=== PATIENT | female | born 2000 | race Caucasian/White ===

== ENCOUNTER 2019-04-07 14:35 | Inpatient (IN) | payer OTHER ==
[2019-04-07] MEDS ORDERED: BUTORPHANOL TARTRATE 1 MG/ML VIAL IVPUSH ONE (15:43)
[2019-04-07] MEDS ORDERED: PROMETHAZINE HCL 25 MG/1 ML VIAL IVPUSH ONE (15:43)
[2019-04-07] MEDS ORDERED: BUTORPHANOL TARTRATE 2 MG/ML VIAL IVPB ONE (15:45)
[2019-04-07] MEDS ORDERED: DEXTROSE 5%-LACTATED RINGERS 1,000 ML IV SCH (15:45)
[2019-04-07] MEDS ORDERED: PROMETHAZINE HCL 25 MG/1 ML VIAL IVPB ONE (15:45)
[2019-04-07 16:20] LABS: BASO % 0.1 % (0-2.0); EOS % 0.3 % (0-4.5); HEMATOCRIT 32.4 % (32.4-45.2); HEMOGLOBIN 10.8 GM/dL (10.7-15.3); LYMPH % 11.7 % (8-40); MCH 28.8 pg (25.7-33.7); MCHC 33.3 g/dl (32.0-36.0); MEAN CELL VOLUME 86.4 fl (80-96); MEAN PLT VOLUME 8.5 fl (7.5-11.1); MONO % 4.6 % (3.8-10.2); NEUT % 83.3 % (42.8-82.8); PLATELET COUNT 191 K/MM3 (134-434); RBC 3.75 M/mm3 (3.60-5.2); RDW 14.1 % (11.6-15.6); WHITE BLOOD COUNT 11.9 K/mm3 (4.0-10.0)
[2019-04-07 16:32] LABS: INR 0.91 (0.83-1.09); PROTHROMBIN TIME (PATIENT) 10.7 SEC (9.7-13.0)
[2019-04-07 16:35] LABS: ACTIVATED PTT 29.9 SECONDS (25.2-36.5)
[2019-04-07 16:36] VITALS: BMI 27.8
[2019-04-07 16:43] LABS: BLOOD UREA NITROGEN 5.9 mg/dL (7-18); CALCIUM 8.8 mg/dL (8.5-10.1); CREATININE 0.5 mg/dL (0.55-1.3); POTASSIUM 3.6 mmol/L (3.5-5.1)
--- NOTE | 2019-04-07 22:31 | HP ---
Past Medical History - Primary Care Physician PCP:: Sachin Neumann - Admission Chief Complaint: 40 weeks, labor History of Present Illness: 18 yo f 40 weeks ,in labor , cx 3 cm 70 vx -3 mi, fhr cat 1, contraction q 2 min, no bleeding, no fever History Source: Patient Limitations to Obtaining History: Language Barrier - Past Medical History ...: 1 ...Para: 0 ...Term: 0 ...: 0 ...Spon : 0 ...Induced : 0 ...Multiple Gestation: 0 ...LMP: 06/30/18 ... Weeks Gestation by Dates: 40.1 ...EDC by Dates: 04/06/19 ...EDC by Sono: 04/06/19 - Past Surgical History Hx Myomectomy: No Hx Transabdominal Cerclage: No - Smoking History Smoking history: Never smoked Have you smoked in the past 12 months: No - Alcohol/Substance Use Hx Alcohol Use: No - Social History Usual Living Arrangement: Yes: With Spouse History of Recent Travel: No Home Medications - Allergies Allergies/Adverse Reactions: Allergies Allergy/AdvReac Type Severity Reaction Status Date / Time No Known Drug Allergies Allergy Verified 04/07/19 15:55 - Home Medications Home Medications: Ambulatory Orders Ferrous Sulfate [Feosol] 325 mg PO DAILY 04/07/19 Vits96/Iron Fum/Folic [ Tablet] 1 each PO DAILY 04/07/19 Review of Systems - Review of Systems Constitutional: reports: No Symptoms Eyes: reports: No Symptoms HENT: reports: No Symptoms Neck: reports: No Symptoms Cardiovascular: reports: No Symptoms Respiratory: reports: No Symptoms Gastrointestinal: reports: No Symptoms Genitourinary: reports: No Symptoms Breasts: reports: No Symptoms Reported Musculoskeletal: reports: No Symptoms Integumentary: reports: No Symptoms Neurological: reports: No Symptoms Endocrine: reports: No Symptoms Hematology/Lymphatic: reports: No Symptoms Psychiatric: reports: No Symptoms Physical Exam - Maternity Vital Signs: Vital Signs Temperature 99.0 F 04/07/19 20:58 Pulse Rate 102 H 04/07/19 20:58 Respiratory Rate 18 04/07/19 20:58 Blood Pressure 118/76 04/07/19 20:58 O2 Sat by Pulse Oximetry (%) Constitutional: Yes: Well Nourished, No Distress, Calm Eyes: Yes: WNL, Conjunctiva Clear, EOM Intact HENT: Yes: WNL, Atraumatic, Normocephalic Neck: Yes: WNL, Supple, Trachea Midline Cardiovascular: Yes: WNL, Regular Rate and Rhythm Breast(s): Yes: WNL - Abdominal Exam/OB Fundal Height: 40 Number of Fetuses: Single Presentation: Vertex Contractions: Yes Regularity: Regular Intensity: Moderate Monitor Mode: External Heart Rate Location: LLQ Accelerations: Non-Uniform Decelerations: None - Vaginal Exam/OB Vaginal Bleediing: No Speculum Exam: No Dilatation (cm): 3 Effacement (%): 70 Amniotic Membrane Status: Intact Presentation: Vertex/Position Station: -3 - Physical Exam Musculoskeletal: Yes: WNL Edema: Yes Edema: RUE: Trace, LLE: Trace Integumentary: Yes: WNL Deep Tendon Reflex Grade: Hyperactive,very brisk +4 Psychiatric: Yes: WNL - Labs Lab Results: CBC, BMP 04/07/19 16:00 04/07/19 16:00 Hemorrhage Risk Assessment - Risk Factors Medium Risk Factors: Yes: None High Risk Factors: Yes: None Risk Score: 1 Risk Level: Medium Risk Problem List - Problems (1) 40 weeks gestation of Code(s): Z3A.40 - 40 WEEKS GESTATION OF (2) Labor established Code(s): HLJ6911 - Assessment/Plan FHM pain management anticipate vaginal delivery
[2019-04-08] MEDS ORDERED: AMPICILLIN - 2 GM in SODIUM CHLORIDE 100 ML IVPB ONE (01:30)
[2019-04-08] MEDS ORDERED: ACETAMINOPHEN 1000 MG/100 ML VIAL (NON FORMULARY) IVPB ONE ×2 (01:30→06:01)
[2019-04-08] MEDS ORDERED: AMPICILLIN SODIUM 2 GM VIAL ONE (01:35)
[2019-04-08] MEDS ORDERED: ACETAMINOPHEN INJECTION 100 ML IVPB ONE (01:36)
[2019-04-08] MEDS ORDERED: CITRIC ACID/SODIUM CITRATE 30 ML UNIT-DOSE CUP PO ONE (04:00)
--- NOTE | 2019-04-08 04:00 | PN ---
Progress Note (short form) - Note Progress Note: had tachycardia, temp 99.3 cx 3 cm, 70 vx -3 ,contraction regular , nitrazine positive received Ampicillin and Tylenol in view of tachy, no dilation and low grade temp advised c/s,possible chorio risks of c/s discussed Problem List - Problems (1) 40 weeks gestation of Code(s): Z3A.40 - 40 WEEKS GESTATION OF (2) Labor established Code(s): DMX9206 -
[2019-04-08] MEDS ORDERED: ELECTROLYTE-148 SOLN 1,000 ML IV SCH (04:15)
[2019-04-08] MEDS ORDERED: morphine SULFATE/PF 0.5 MG/ML (2cc Syringe - QUVA) EP ONE (04:50)
[2019-04-08] MEDS ORDERED: ceFAZolin SODIUM 1 GM VIAL ONE (04:54)
[2019-04-08] MEDS ORDERED: OXYTOCIN 10 UNITS/ML VIAL ONE (04:59)
[2019-04-08] MEDS ORDERED: KETOROLAC TROMETHAMINE 30 MG/1 ML VIAL ONE (04:59)
[2019-04-08] MEDS ORDERED: GENTAMICIN SO4 80 MG/2 ML VIAL ONE ×2 (05:11→05:13)
[2019-04-08] MEDS ORDERED: AMPICILLIN - 1 GM in SODIUM CHLORIDE 100 ML IVPB SCH (05:30)
[2019-04-08] MEDS ORDERED: IBUPROFEN 800 MG/8 ML IJ IVPB PRN (05:41)
[2019-04-08] MEDS ORDERED: METHYLERGONOVINE MALEATE 0.2 MG/1 ML AMP IM PRN (05:41)
[2019-04-08] MEDS ORDERED: BENZOCAINE 28 GM HEMORRHOIDAL OINTMENT PR PRN (05:41)
[2019-04-08] MEDS ORDERED: oxyCODONE HCL 5 MG TABLET PO PRN ×2 (05:41)
[2019-04-08] MEDS ORDERED: diphenhydrAMINE HCL 25 MG CAPSULE (FP) PO PRN (05:41)
[2019-04-08] MEDS ORDERED: BENZOCAINE 20% 57 GM BOTTLE TP PRN (05:41)
[2019-04-08] MEDS ORDERED: WITCH HAZEL 50% (TUCKS) 40 PAD/JAR PAD TP PRN (05:41)
[2019-04-08] MEDS ORDERED: OXYTOCIN 20 UNITS in 0.9% NS 1,000 ML IV SCH (05:45)
[2019-04-08] MEDS ORDERED: DEXTROSE 5%-LACTATED RINGERS 1,000 ML IV SCH (05:45)
[2019-04-08] MEDS ORDERED: OXYTOCIN 20 UNITS in 0.9% NS 20 UNIT/1,000 ML INFUS.BAG IV SCH (05:45)
--- NOTE | 2019-04-08 05:48 | OP ---
Operative Note - Note: Operative Date: 04/08/19 Pre-Operative Diagnosis: 40 weeks, tachy, low grade temp, r/o chorio Operation: primary LST c/s Findings: live baby girl 9/9 , lot, clear fliuid ,AF with odor Surgeon: Sachin Neumann Bag Worker: Juanito Loza Anesthesiologist/WAREHOUSER: Osvaldo Silver Anesthesia: Spinal Specimens Removed: placenta Estimated Blood Loss (mls): 500 Drains & Tubes with Location: [email or web address] Blood Volume Replaced (mls): 0 Operative Report Dictated: Yes
[2019-04-08] MEDS ORDERED: ONDANSETRON 4 MG/2 ML VIAL IVPUSH PRN (05:57)
[2019-04-08] MEDS ORDERED: LACTATED RINGERS SOLUTION 1,000 ML IV SCH (06:00)
[2019-04-08] MEDS ORDERED: OXYTOCIN 20 UNITS in 0.9% NS 20 UNIT/1,000 ML INFUS.BAG IV ONE (06:34)
[2019-04-08] MEDS ORDERED: ONDANSETRON 4 MG/2 ML VIAL ONE (06:39)
[2019-04-08] MEDS: ONDANSETRON 4 MG/2 ML VIAL IVPUSH PRN ×2 (06:45→12:37)
[2019-04-08] MEDS: CEFAZOLIN 1 GM/D5W 1 GM/50 ML BAG IVPB SCH ×2 (10:08→17:43)
[2019-04-08 11:13] LABS: POC NITRAZINE POS
[2019-04-09] MEDS ORDERED: BISACODYL 10 MG SUPP.RECT PR PRN (05:41)
[2019-04-09 08:23] LABS: BASO % 0.1 % (0-2.0); EOS % 0.2 % (0-4.5); HEMATOCRIT 22.1 % (32.4-45.2); HEMOGLOBIN 7.3 GM/dL (10.7-15.3); LYMPH % 15.4 % (8-40); MCH 28.7 pg (25.7-33.7); MCHC 33.1 g/dl (32.0-36.0); MEAN CELL VOLUME 86.7 fl (80-96); MEAN PLT VOLUME 8.2 fl (7.5-11.1); MONO % 5.6 % (3.8-10.2); NEUT % 78.7 % (42.8-82.8); PLATELET COUNT 153 K/MM3 (134-434); RBC 2.55 M/mm3 (3.60-5.2); RDW 14.3 % (11.6-15.6); WHITE BLOOD COUNT 11.9 K/mm3 (4.0-10.0)
[2019-04-09] MEDS: IBUPROFEN 600 MG TABLET (FP) PO PRN (13:58)
[2019-04-09] MEDS: ACETAMINOPHEN 325 MG TABLET (FP) PO PRN (13:59)
[2019-04-09] MEDS: SIMETHICONE 80 MG TAB.CHEW (FP) PO PRN (13:59)
--- NOTE | 2019-04-09 14:10 | PN ---
Progress Note (short form) - Note Progress Note: Pt Seen. Doing well. POD#1 after under spinal w/ Duramorph. No Complaints.
--- NOTE | 2019-04-09 15:03 | PATH ---
Surgical Pathology Report Patient Name: SHEREEN SOW Med. Rec. #: [id number] /Age/Gender: 2000 (Age: 18) / F Account: [id number] Location: [facility] OBS/MANAGER OF TAX Taken: 04/08/2019 Received: 04/08/2019 Reported: 04/09/2019 Physicians: Sachin Neumann M.D. Specimen(s) Received PLACENTA Clinical History , IUP 40.2 weeks, AB therapy Temperature 99.3 Primary secondary to failure to descend/dilate Final Diagnosis PLACENTA, SECTION: 534 G THIRD TRIMESTER PLACENTA WITH SEVERE ACUTE CHORIOAMNIONITIS. TRIVASCULAR UMBILICAL CORD WITH PANVASCULITIS AND ASSOCIATED FUNISITIS. Electronically Signed Shereen Cordon M.D. Gross Description The specimen is received fresh labeled placenta and is a 534 gram, 17.5 x 14.0 x 3.5 cm. placenta with attached membranes and umbilical cord. The attached membranes are ashley, translucent with focal opacities and insert marginally. The umbilical cord measures 13.5 cm. in length and averages 1.3 cm. in diameter. The cord inserts centrally. No true knots or strictures are identified. Cut surface of the umbilical cord reveals 3 vessels. The surface is ralph-blue with minimal fibrin deposition and appropriate caliber vessels. The maternal surface is red-brown and intact. Sectioning reveals red-brown, spongy parenchyma. No lesions are identified. Animal Nutrition Teacher sections are submitted in three cassettes as follows: 1- membrane rolls and umbilical cord; 2-3- full thickness sections of placenta. /04/08/2019 [facility]04/08/2019
--- NOTE | 2019-04-09 17:52 | PN ---
Post Progress Note - Subjective Subjective: Doing well. Pain controlled. No fevers/chills. Minimal ambulation. Type of Delivery: Primary C/S Vital Signs: Vital Signs Temperature 98.1 F 04/09/19 10:00 Pulse Rate 99 H 04/09/19 10:00 Respiratory Rate 18 04/09/19 10:00 Blood Pressure 107/65 04/09/19 10:00 O2 Sat by Pulse Oximetry (%) 99 04/08/19 06:45 Uterus: Yes: Fundus below umbilicus Incision: Yes: Dressing dry and intact Abdomen/GI: Yes: Abdomen soft Lochia: Yes: Rubra Lochia, amount: Small Extremities: Yes: Calves non-tender Perineum: Yes: Intact Activity: Ambulating - Labs Labs: CBC WBC 11.9 K/mm3 (4.0-10.0) H 04/09/19 07:47 RBC 2.55 M/mm3 (3.60-5.2) L 04/09/19 07:47 Hgb 7.3 GM/dL (10.7-15.3) L 04/09/19 07:47 Hct 22.1 % (32.4-45.2) L D 04/09/19 07:47 MCV 86.7 fl (80-96) 04/09/19 07:47 MCH 28.7 pg (25.7-33.7) 04/09/19 07:47 MCHC 33.1 g/dl (32.0-36.0) 04/09/19 07:47 RDW 14.3 % (11.6-15.6) 04/09/19 07:47 Plt Count 153 K/MM3 (134-434) 04/09/19 07:47 MPV 8.2 fl (7.5-11.1) 04/09/19 07:47 Absolute Neuts (auto) 9.4 K/mm3 (1.5-8.0) H 04/09/19 07:47 Neutrophils % 78.7 % (42.8-82.8) 04/09/19 07:47 Lymphocytes % 15.4 % (8-40) D 04/09/19 07:47 Monocytes % 5.6 % (3.8-10.2) 04/09/19 07:47 Eosinophils % 0.2 % (0-4.5) 04/09/19 07:47 Basophils % 0.1 % (0-2.0) 04/09/19 07:47 Nucleated RBC % 0 % (0-0) 04/09/19 07:47 Assessment/Plan 18yo s/p PTLCS c/b chorio, anemia Routine PP care s/p Amp/Gent, now off, cont to monitor; afebrile CBC with H/H 12/10, no symptoms. Iron supplementation. Repeat CBC in AM PO pain control Anticipate d/c to home by POD#4 Dave Perry MD
[2019-04-09] MEDS: FERROUS SO4 325 MG TABLET (FP) PO SCH (22:10)
--- NOTE | 2019-04-10 00:19 | OP ---
DATE OF OPERATION: 04/08/2019 PREOPERATIVE DIAGNOSIS: 40 weeks, labor, chorioamnionitis. POSTOPERATIVE DIAGNOSIS: 40 weeks, labor, chorioamnionitis. PROCEDURE: Primary low segment transverse resection. SURGEON: Palmira Neumann MD ANESTHESIA: Spinal anesthesia. ANESTHESIOLOGIST: Salomón Silver MD ESTIMATED BLOOD LOSS: 700 mL. OPERATION: Patient was taken to operating room with adequate spinal anesthesia. Abdomen and perineum were prepped and draped. Pfannenstiel abdominal skin incision was made. Abdominal wall was cut layer by layer until the peritoneum was exposed and incised. Upon entering the abdominal cavity, the lower uterine segment was identified, and uterovesical fold of the peritoneum was established. The bladder was pushed down. A low transverse incision was made, the incision extended laterally. Amniotic sac was entered. Amniotic sac was foul smelling. A culture was taken. Head delivered. Nasopharynx was suctioned. A live baby was delivered without any difficulty. Apgars 9 and 9. Placenta was delivered manually. Uterine cavity was cleared of all remaining tissue. Uterine incision was closed in 2 layers, the 1st layer with 0 Biosyn continuous suture, and the 2nd layer with 0 Biosyn imbricating the 1st layer. Bladder flap was closed with 0 Biosyn continuous suture. Both tubes and ovaries were checked and were normal. No active bleeding was seen. All the lap, sponge, and instrument counts were correct. Peritoneum was closed with 0 Biosyn continuous suture. Muscles were brought together interrupted suture with 0 Biosyn. Fascia was closed with 0 Biosyn continuous sutures, subcutaneous fat with interrupted sutures 0 Biosyn, and the skin was closed with 3-0 Vicryl subcuticular continuous suture. The patient tolerated the procedure well and left the OR in good condition. PALMIRA NEUMANN M.D. [id number]
[2019-04-10] MEDS: SIMETHICONE 80 MG TAB.CHEW (FP) PO PRN ×2 (00:59→13:30)
[2019-04-10] MEDS: ACETAMINOPHEN 325 MG TABLET (FP) PO PRN ×2 (00:59→13:30)
[2019-04-10] MEDS: IBUPROFEN 600 MG TABLET (FP) PO PRN ×2 (00:59→13:29)
--- NOTE | 2019-04-10 06:46 | PN ---
Post Progress Note - Subjective Subjective: no c/o dizziness passing flatus , sometimes gaseous discomfort voiding without difficulty paon scale /10 Post Day: 2 Type of Delivery: Primary C/S Vital Signs: Vital Signs Temperature 97.8 F 04/09/19 22:00 Pulse Rate 98 H 04/09/19 22:00 Respiratory Rate 18 04/09/19 22:00 Blood Pressure 105/60 04/09/19 22:00 O2 Sat by Pulse Oximetry (%) 99 04/08/19 06:45 Breast Exam: Yes: Soft, Other (BF & bottle feeding ). No: Engorged Uterus: Yes: Fundus Firm, Fundus below umbilicus, Non-tender Incision: Yes: Sutures intact. No: Redness, Oozing Abdomen/GI: Yes: Abdomen soft, Passing flatus, Tolerating PO (diet ). No: Abdominal Distention, Tender Lochia: Yes: Rubra Lochia, amount: Small Extremities: Yes: Calves non-tender. No: Edema Perineum: Yes: Intact Activity: Ambulating - Labs Labs: CBC WBC 11.9 K/mm3 (4.0-10.0) H 04/09/19 07:47 RBC 2.55 M/mm3 (3.60-5.2) L 04/09/19 07:47 Hgb 7.3 GM/dL (10.7-15.3) L 04/09/19 07:47 Hct 22.1 % (32.4-45.2) L D 04/09/19 07:47 MCV 86.7 fl (80-96) 04/09/19 07:47 MCH 28.7 pg (25.7-33.7) 04/09/19 07:47 MCHC 33.1 g/dl (32.0-36.0) 04/09/19 07:47 RDW 14.3 % (11.6-15.6) 04/09/19 07:47 Plt Count 153 K/MM3 (134-434) 04/09/19 07:47 MPV 8.2 fl (7.5-11.1) 04/09/19 07:47 Absolute Neuts (auto) 9.4 K/mm3 (1.5-8.0) H 04/09/19 07:47 Neutrophils % 78.7 % (42.8-82.8) 04/09/19 07:47 Lymphocytes % 15.4 % (8-40) D 04/09/19 07:47 Monocytes % 5.6 % (3.8-10.2) 04/09/19 07:47 Eosinophils % 0.2 % (0-4.5) 04/09/19 07:47 Basophils % 0.1 % (0-2.0) 04/09/19 07:47 Nucleated RBC % 0 % (0-0) 04/09/19 07:47 Problem List - Problems (1) examination following delivery Code(s): Z39.2 - ENCOUNTER FOR ROUTINE FOLLOW-UP (2) Anemia Code(s): D64.9 - ANEMIA, UNSPECIFIED Qualifiers: Anemia type: iron deficiency Iron deficiency anemia type: inadequate dietary iron intake Qualified Code(s): D50.8 - Other iron deficiency anemias Assessment/Plan s/p primary c/section,afebrile , severe anemia , hemodynamically stable pt is made aware of anemia & symptoms . discuss expectant management versus pack cell transfusion,r/b/a informed . she declined transfusion ct po iron & pnv . encourage ambulation with someone by her side , po fluids , deep breathing
[2019-04-10] MEDS ORDERED: FLU VACCINE QUAD 60 MCG/0.5 ML (MDV 19-20) IM ONE (08:52)
[2019-04-10] MEDS: FERROUS SO4 325 MG TABLET (FP) PO SCH ×2 (09:15→23:20)
[2019-04-10] MEDS ORDERED: DIPHTH,PERTUSS(ACELL),TET 0.5 ML DISP.SYRIN IM ONE (10:00)
[2019-04-10] MEDS ORDERED: FLU VACC QS2019-20(6MOS UP)/PF 60 MCG/0.5 ML SYRINGE IM ONE (10:00)
[2019-04-10] MEDS: PRENATAL VITAMINS W/ FOLIC ACID TABLET (FP) PO SCH (11:00)
[2019-04-10] MEDS ORDERED: SENNOSIDES/DOCUSATE COMBO (SENNA PLUS) TABLET (UD) PO PRN (22:00)
[2019-04-11] MEDS: IBUPROFEN 600 MG TABLET (FP) PO PRN (00:10)
[2019-04-11] MEDS: SIMETHICONE 80 MG TAB.CHEW (FP) PO PRN (00:10)
[2019-04-11] MEDS: ACETAMINOPHEN 325 MG TABLET (FP) PO PRN (00:11)
--- NOTE | 2019-04-11 08:50 | DS ---
Physical Examination Vital Signs: Vital Signs Temperature 97.8 F 04/10/19 22:00 Pulse Rate 91 H 04/10/19 22:00 Respiratory Rate 18 04/10/19 22:00 Blood Pressure 113/66 04/10/19 22:00 O2 Sat by Pulse Oximetry (%) 98 04/10/19 21:00 Findings/Remarks: Ambulating, tolerating PO, lochia decreased, patient denies lightheadedness and weakness, previuosly counseld on anemia and declined blood transfusion. Constitutional: Yes: Well Nourished Eyes: Yes: WNL HENT: Yes: Atraumatic Neck: Yes: Supple Cardiovascular: Yes: Regular Rate and Rhythm Respiratory: Yes: Regular Gastrointestinal: Yes: Normal Bowel Sounds ...Rectal Exam: Yes: Other (deferred) Renal/: Yes: WNL Breast(s): Yes: Other (deferred) Musculoskeletal: Yes: WNL Extremities: Yes: WNL Edema: Yes Edema: LLE: Trace, RLE: Trace Integumentary: Yes: WNL Wound/Incision: Yes: Clean/Dry, Well Approximated Neurological: Yes: Alert, Oriented ...Motor Strength: WNL Psychiatric: Yes: Alert, Oriented Labs: CBC, BMP 04/09/19 07:47 04/07/19 16:00 Discharge Summary Problems reviewed: Yes Reason For Visit: LABOR Current Active Problems 40 weeks gestation of (Acute) Anemia (Acute) Labor established (Acute) examination following delivery (Acute) Procedures: Principal: CD Hospital Course: Patient underwent CD due to chorioamnionitis. recovery complicated by anemia. Patient is asymptomatic and declined blood transfusion. Risks and complications of anemia explained. Patient instructed to follow up within a week at [facility] for incision check Health Concerns: Anemia Plan of Treatment: PP/post-op precautions discussed with patient. Follow up instructions explained. Condition: Stable - Instructions Referrals: Dolores Gutiérrez CNM [Certified Nurse Cnc Mill Programmer] - Disposition: HOME - Home Medications Comprehensive Discharge Medication List: Ambulatory Orders Ferrous Sulfate [Feosol] 325 mg PO DAILY 04/07/19 Vits96/Iron Fum/Folic [ Tablet] 1 each PO DAILY 04/07/19 Acetaminophen [Tylenol] 325 mg PO Q4H PRN #20 capsule 04/11/19 Ferrous Sulfate [Feosol] 325 mg PO BID #30 tablet 04/11/19 Ibuprofen 600 mg PO Q6H PRN #30 tablet 04/11/19 Oxycodone HCl 5 mg PO Q6H PRN #10 tablet MDD 5 04/11/19
[2019-04-11 09:07] VITALS: BP 110/68; PULSE 88; TEMP 98
[2019-04-11] MEDS: FERROUS SO4 325 MG TABLET (FP) PO SCH (09:17)
[2019-04-11] MEDS: PRENATAL VITAMINS W/ FOLIC ACID TABLET (FP) PO SCH (09:17)
[2019-04-11 10:51] LABS: BASO % 0.2 % (0-2.0); EOS % 0.7 % (0-4.5); HEMATOCRIT 24.7 % (32.4-45.2); HEMOGLOBIN 8.3 GM/dL (10.7-15.3); LYMPH % 13.7 % (8-40); MCHC 33.4 g/dl (32.0-36.0); MEAN CELL VOLUME 86.6 fl (80-96); MONO % 4.9 % (3.8-10.2); NEUT % 80.5 % (42.8-82.8); PLATELET COUNT 248 K/MM3 (134-434); RBC 2.86 M/mm3 (3.60-5.2); RDW 13.9 % (11.6-15.6); WHITE BLOOD COUNT 9.7 K/mm3 (4.0-10.0)
== END 2019-04-11 13:45 | disposition home or self-care (01) | DRG 540 ==
LOC: JDEL 14:35 → JLDR 15:20 → J3W 04-08 08:00
PROVIDERS: ADMIT Obstetrics & Gynecology; ATTEND Obstetrics & Gynecology
PROC: 10D00Z1 Extraction of Products of Conception, Low, Open Approach (ICD-10-PCS; principal; 2019-04-08)
DX: O48.0 Post-term pregnancy (principal); Z3A.40 40 weeks gestation of pregnancy; O41.1230 Chorioamnionitis, third trimester, not applicable or unspecified; O76 Abnormality in fetal heart rate and rhythm complicating labor and delivery; O99.02 Anemia complicating childbirth; D64.9 Anemia, unspecified; Z37.0 Single live birth
CPT/HCPCS: 36415; 36600; 80048; 82803; 83986-QW; 85025; 85610; 85730; 86593; 86850; 86900; 86901; 87070; 87205; 88307-TC; 90686; 90715; J0131

== ENCOUNTER 2021-04-25 01:05 | Emergency (ER) | payer OTHER ==
[2021-04-25] MEDS ORDERED: DIPHTH,PERTUSS(ACELL),TET 0.5 ML DISP.SYRIN IM ONE ×2 (02:47→03:12)
[2021-04-25 03:34] VITALS: BP 116/79; PULSE 79; TEMP 97.2; BMI 25.4
== END 2021-04-25 05:46 | disposition home or self-care (01) ==
LOC: JER 01:05
PROC: 3E0234Z Introduction of Serum, Toxoid and Vaccine into Muscle, Percutaneous Approach (ICD-10-PCS; principal; 2021-04-25)
DX: S61.206A Unspecified open wound of right little finger without damage to nail, initial encounter (principal); W26.0XXA Contact with knife, initial encounter
CPT/HCPCS: 73130-TC-RT-FY; 90471; 90715; 99283-25

== ENCOUNTER 2021-04-27 13:21 | Emergency (ER) | payer SELFPAY ==
[2021-04-27 13:27] VITALS: BP 121/71; PULSE 66; TEMP 98.1; BMI 25.0
== END 2021-04-27 15:13 | disposition home or self-care (01) ==
LOC: JERFT 13:21
DX: S60.051A Contusion of right little finger without damage to nail, initial encounter (principal)
CPT/HCPCS: 99281-25

== ENCOUNTER 2021-05-04 00:40 | Emergency (ER) | payer SELFPAY ==
[2021-05-04 01:31] VITALS: BP 114/75; PULSE 61; TEMP 98; BMI 25.0
== END 2021-05-04 02:44 | disposition home or self-care (01) ==
LOC: JER 00:40
DX: S61.216A Laceration without foreign body of right little finger without damage to nail, initial encounter (principal); W26.0XXA Contact with knife, initial encounter; Z48.00 Encounter for change or removal of nonsurgical wound dressing
CPT/HCPCS: 99281-25

== ENCOUNTER 2023-01-17 03:47 | Emergency (ER) | payer OTHER ==
[2023-01-17 03:56] VITALS: BMI 26.4
[2023-01-17] MEDS ORDERED: ACETAMINOPHEN 1000 MG/100 ML BAG IVPB ONE (04:30)
[2023-01-17] MEDS ORDERED: ONDANSETRON 4 MG/2 ML VIAL IVPUSH ONE ×2 (04:46→06:55)
[2023-01-17] MEDS ORDERED: SODIUM CHLORIDE 1,000 ML IV STA (04:46)
[2023-01-17] MEDS ORDERED: ACETAMINOPHEN INJECTION 100 ML IVPB ONE (04:47)
[2023-01-17 05:05] LABS: EPI CELLS >36 /uL (0-25.1); HYALINE CASTS 0 /uL (0-3.1); URINE APPEARANCE CLEAR; URINE BACTERIA 2159 /uL (0-1359); URINE BILIRUBIN NEGATIVE (NEGATIVE); URINE COLOR YELLOW; URINE GLUCOSE (UA) NEGATIVE (NEGATIVE); URINE KETONE NEGATIVE (NEGATIVE); URINE LEUK ESTERASE 2+ (NEGATIVE); URINE NITRITE NEGATIVE (NEGATIVE); URINE PROTEIN NEGATIVE (NEGATIVE); URINE UROBILINOGEN 0.2 mg/dL (0.2-1.0); URINE WBC 33 /uL (0-25.8)
[2023-01-17 05:16] LABS: HEMATOCRIT 36.3 % (32.4-45.2); MCH 27.8 pg (25.7-33.7); MCHC 33.1 g/dl (32.0-36.0); MEAN CELL VOLUME 83.9 fl (80-96); MEAN PLT VOLUME 8.3 fl (7.5-11.1); PLATELET COUNT 258 10^3/uL (134-434); RBC 4.32 M/mm3 (3.60-5.2); RDW 13.5 % (11.6-15.6); WHITE BLOOD COUNT 11.8 K/mm3 (4.0-10.0)
[2023-01-17] MEDS ORDERED: CEPHALEXIN MONOHYDRATE 500 MG CAPSULE (UD) PO ONE (05:21)
[2023-01-17 05:49] LABS: ALBUMIN 3.5 g/dl (3.4-5.0); BLOOD UREA NITROGEN 4.2 mg/dL (7-18)
[2023-01-17 05:52] LABS: CREATININE 0.5 mg/dL (0.55-1.3)
[2023-01-17 05:53] LABS: BILIRUBIN,TOTAL 0.3 mg/dL (0.2-1); TOT PROT 7.2 g/dl (6.4-8.2)
[2023-01-17 05:59] LABS: BASO % 0.3 % (0-2.0); EOS % 0.9 % (0-4.5); LYMPH % 16.6 % (8-40); MONO % 2.9 % (3.8-10.2); NEUT % 79.3 % (42.8-82.8)
[2023-01-17 06:31] LABS: URINE RBC 36.2 /uL (0-23.9)
[2023-01-17] MEDS ORDERED: DEXTROSE 5%-0.45% SALINE 1,000 ML IV SCH ×2 (07:00)
[2023-01-17] MEDS ORDERED: ONDANSETRON 4 MG/2 ML VIAL ONE (07:20)
[2023-01-17 08:15] VITALS: TEMP 97.8
[2023-01-17] MEDS ORDERED: CEPHALEXIN MONOHYDRATE 500 MG CAPSULE (UD) ONE (08:18)
[2023-01-17 10:16] VITALS: BP 109/70; PULSE 64; RESP 18
== END 2023-01-17 10:26 | disposition home or self-care (01) ==
LOC: JER 03:47
PROC: 3E033NZ Introduction of Analgesics, Hypnotics, Sedatives into Peripheral Vein, Percutaneous Approach (ICD-10-PCS; principal; 2023-01-17)
PROC: 3E033GC Introduction of Other Therapeutic Substance into Peripheral Vein, Percutaneous Approach (ICD-10-PCS; 2023-01-17)
PROC: 3E033GC Introduction of Other Therapeutic Substance into Peripheral Vein, Percutaneous Approach (ICD-10-PCS; 2023-01-17)
PROC: 3E0337Z Introduction of Electrolytic and Water Balance Substance into Peripheral Vein, Percutaneous Approach (ICD-10-PCS; 2023-01-17)
DX: O26.891 Other specified pregnancy related conditions, first trimester (principal); R07.0 Pain in throat; O21.9 Vomiting of pregnancy, unspecified; O23.41 Unspecified infection of urinary tract in pregnancy, first trimester; N39.0 Urinary tract infection, site not specified; R68.83 Chills (without fever); Z3A.10 10 weeks gestation of pregnancy; Z20.822 Contact with and (suspected) exposure to COVID-19
CPT/HCPCS: 0241U-QW; 36415; 76815; 80053; 81003; 84702; 85025; 87086; 87651; 99284-25

== ENCOUNTER 2023-07-29 23:53 | Emergency (ER) | payer OTHER ==
[2023-07-30 00:04] VITALS: BMI 33.2
[2023-07-30] MEDS ORDERED: ACETAMINOPHEN 325 MG TABLET (FP) ONE ×2 (00:34→05:19)
[2023-07-30] MEDS: ACETAMINOPHEN 325 MG TABLET (FP) PO ONE ×2 (00:46→05:20)
[2023-07-30 01:28] LABS: EPI CELLS >36 /uL (0-25.1); HYALINE CASTS 0 /uL (0-3.1); PH,URINE 6.5 (5.0-8.0); URINE APPEARANCE CLEAR; URINE BACTERIA 1252 /uL (0-1359); URINE BILIRUBIN NEGATIVE (NEGATIVE); URINE COLOR YELLOW; URINE GLUCOSE (UA) NEGATIVE (NEGATIVE); URINE KETONE NEGATIVE (NEGATIVE); URINE LEUK ESTERASE 2+ (NEGATIVE); URINE NITRITE NEGATIVE (NEGATIVE); URINE PROTEIN NEGATIVE (NEGATIVE); URINE RBC 5 /uL (0-23.9); URINE UROBILINOGEN 0.2 mg/dL (0.2-1.0); URINE WBC 50 /uL (0-25.8)
[2023-07-30] MEDS ORDERED: CEPHALEXIN MONOHYDRATE 500 MG CAPSULE (UD) ONE (01:38)
[2023-07-30] MEDS: CEPHALEXIN MONOHYDRATE 500 MG CAPSULE (UD) PO ONE (01:43)
[2023-07-30] MEDS: LACTATED RINGERS SOLUTION 1,000 ML IV ONE ×2 (03:40→05:20)
[2023-07-30 04:13] VITALS: PULSE 126
[2023-07-30 05:23] VITALS: RESP 18
[2023-07-30 06:37] VITALS: TEMP 98.9
[2023-07-30 06:42] VITALS: BP 107/61
== END 2023-07-30 06:40 | disposition home or self-care (01) ==
LOC: JER 23:53
PROC: 3E0337Z Introduction of Electrolytic and Water Balance Substance into Peripheral Vein, Percutaneous Approach (ICD-10-PCS; principal; 2023-07-30)
PROC: 3E0337Z Introduction of Electrolytic and Water Balance Substance into Peripheral Vein, Percutaneous Approach (ICD-10-PCS; 2023-07-30)
DX: R50.9 Fever, unspecified (principal); R09.81 Nasal congestion; R05.9 Cough, unspecified; M54.50 Low back pain, unspecified; R82.71 Bacteriuria; J10.1 Influenza due to other identified influenza virus with other respiratory manifestations; Z20.822 Contact with and (suspected) exposure to COVID-19
CPT/HCPCS: 0241U-QW; 81003; 87086; 99284-25

== ENCOUNTER 2023-08-04 02:30 | Inpatient (IN) | payer OTHER ==
[2023-08-04] MEDS: DEXTROSE 5%-LACTATED RINGERS 1,000 ML IV SCH (03:30)
[2023-08-04 03:37] VITALS: BMI 31.0
[2023-08-04 04:50] LABS: BASO % 0.2 % (0-2.0); EOS % 0.4 % (0-4.5); HEMATOCRIT 34.9 % (32.4-45.2); LYMPH % 29.4 % (8-40); MCH 29.1 pg (25.7-33.7); MCHC 34.4 g/dl (32.0-36.0); MEAN CELL VOLUME 84.6 fl (80-96); MONO % 4.3 % (3.8-10.2); NEUT % 65.7 % (42.8-82.8); PLATELET COUNT 133 10^3/uL (134-434); RBC 4.12 M/mm3 (3.60-5.2); RDW 14.1 % (11.6-15.6); WHITE BLOOD COUNT 6.5 K/mm3 (4.0-10.0)
[2023-08-04 05:07] LABS: INR 0.9 (0.83-1.09); PROTHROMBIN TIME (PATIENT) 10.4 SEC (9.7-13.0)
[2023-08-04 05:10] LABS: ACTIVATED PTT 29.5 SECONDS (25.2-36.5)
[2023-08-04 05:17] LABS: CALCIUM 8.8 mg/dL (8.5-10.1); POTASSIUM 3.8 mmol/L (3.5-5.1)
[2023-08-04 05:18] LABS: BLOOD UREA NITROGEN 8.8 mg/dL (7-18)
[2023-08-04 05:22] LABS: CREATININE 0.5 mg/dL (0.55-1.3)
[2023-08-04] MEDS ORDERED: BUTORPHANOL TARTRATE 1 MG/ML VIAL IVPUSH PRN (06:04)
[2023-08-04] MEDS: ELECTROLYTE-148 SOLN 1,000 ML IV SCH (06:10)
[2023-08-04] MEDS ORDERED: FENTANYL/BUPIVACAINE/NS/PF - PCEA - 50 ML DISP.SYRIN EP ONE ×2 (06:10→12:00)
[2023-08-04] MEDS ORDERED: NALOXONE HCL 0.4 MG/ML VIAL IVPUSH PRN (06:15)
[2023-08-04] MEDS ORDERED: FENTANYL CITRATE/PF 50 MCG/ML VIAL ONE (06:17)
[2023-08-04] MEDS: FENTANYL/BUPIVACAINE/NS/PF - PCEA - 50 ML DISP.SYRIN EP SCH (06:37)
[2023-08-04 12:39] LABS: POC NITRAZINE POS
[2023-08-04] MEDS ORDERED: ONDANSETRON 4 MG/2 ML VIAL IVPUSH PRN (16:31)
[2023-08-04] MEDS ORDERED: LIDO 2%/EPI 1:200000 PRESRVFRE (20 ML SDVIAL) ONE (16:42)
[2023-08-04] MEDS ORDERED: morphine SULFATE/PF 1 MG/2 ML (2cc Syringe - QUVA) ONE (16:47)
[2023-08-04] MEDS: OXYTOCIN 20 UNITS in 0.9% NS 20 UNIT/1,000 ML INFUS.BAG IV SCH (17:45)
[2023-08-04] MEDS ORDERED: OXYTOCIN 20 UNITS in 0.9% NS 20 UNIT/1,000 ML INFUS.BAG IV ONE (17:45)
[2023-08-04] MEDS: PROMETHAZINE HCL 25 MG/1 ML VIAL IM ONE (18:29)
[2023-08-04] MEDS ORDERED: IBUPROFEN 800 MG/8 ML IJ IVPB ONE (19:22)
[2023-08-04] MEDS: IBUPROFEN 800 MG/8 ML IJ IVPB PRN (19:30)
[2023-08-05] MEDS ORDERED: oxyCODONE HCL 5 MG TABLET PO PRN (04:34)
[2023-08-05 08:14] LABS: BASO % 0.1 % (0-2.0); EOS % 0.2 % (0-4.5); HEMATOCRIT 25.9 % (32.4-45.2); HEMOGLOBIN 8.8 GM/dL (10.7-15.3); LYMPH % 21.8 % (8-40); MCH 29.3 pg (25.7-33.7); MEAN CELL VOLUME 86.2 fl (80-96); MONO % 5.1 % (3.8-10.2); NEUT % 72.8 % (42.8-82.8); PLATELET COUNT 128 10^3/uL (134-434); RDW 13.7 % (11.6-15.6); WHITE BLOOD COUNT 8.2 K/mm3 (4.0-10.0)
[2023-08-05] MEDS: DIPHTH,PERTUSS(ACELL),TET 0.5 ML DISP.SYRIN IM ONE (11:16)
[2023-08-05 12:45] VITALS: RESP 18
[2023-08-05] MEDS: ACETAMINOPHEN 325 MG TABLET (FP) PO PRN (13:29)
[2023-08-05] MEDS ORDERED: BISACODYL 10 MG SUPP.RECT RC PRN (16:34)
[2023-08-05] MEDS: SIMETHICONE 80 MG TAB.CHEW (FP) PO PRN (17:23)
[2023-08-05] MEDS: IBUPROFEN 600 MG TABLET (FP) PO PRN (17:23)
[2023-08-07 07:25] LABS: BASO % 0.2 % (0-2.0); EOS % 0.8 % (0-4.5); HEMATOCRIT 24.5 % (32.4-45.2); HEMOGLOBIN 8.4 GM/dL (10.7-15.3); LYMPH % 27.2 % (8-40); MCH 29.3 pg (25.7-33.7); MCHC 34.2 g/dl (32.0-36.0); MEAN CELL VOLUME 85.7 fl (80-96); MEAN PLT VOLUME 8.1 fl (7.5-11.1); MONO % 4.1 % (3.8-10.2); NEUT % 67.7 % (42.8-82.8); PLATELET COUNT 210 10^3/uL (134-434); RBC 2.86 M/mm3 (3.60-5.2)
[2023-08-07 11:28] VITALS: BP 123/77; PULSE 84; TEMP 97.8
== END 2023-08-07 13:10 | disposition home or self-care (01) | DRG 540 ==
LOC: JLDR 02:30 → J3W 20:40
PROVIDERS: ADMIT Obstetrics & Gynecology; ATTEND Obstetrics & Gynecology
PROC: 10D00Z1 Extraction of Products of Conception, Low, Open Approach (ICD-10-PCS; principal; 2023-08-04)
DX: O34.211 Maternal care for low transverse scar from previous cesarean delivery (principal); O62.1 Secondary uterine inertia; O66.41 Failed attempted vaginal birth after previous cesarean delivery; Z3A.39 39 weeks gestation of pregnancy; Z37.0 Single live birth
CPT/HCPCS: 36415; 71045-TC-FY; 80048; 83986-QW; 85025; 85610; 85730; 86780; 86850; 86900; 86901; 87340; 88307-TC; 90715